=== PATIENT | male | born 1965 | race Caucasian/White ===

== ENCOUNTER 2017-03-16 05:10 | Day surgery (SDC) | payer OTHER ==
[2017-03-15 10:48] LABS: HEMATOCRIT 49.1 % (42.0-54.0); HEMOGLOBIN 16.7 g/dL (13.5-17.5); MCH 30.1 pg (26.0-34.0); MCV 88.6 fL (80.0-100.0); RBC 5.54 10x6/uL (4.20-6.10); RDW 12.9 % (11.5-14.5); WBC 7.4 10x3/uL (4.8-10.8)
[~2017-03-16] VITALS: Ht 180.3 cm; Wt 88.5 kg
[~2017-03-16 05:10] MED LIST: ZESTORETIC 20-1 EACH PO
[2017-03-16 08:24] VITALS: BP 129/84; Ht 180.3 cm; Wt 88.5 kg
--- NOTE | 2017-03-16 19:40 | NUR ---
1556--PT COMPLAINS OF PAIN, NORCO 5/325MG GIVEN X2 TAB. PT VOIDS WITHOUT DIFFICULTY, IV DC'D. FARHANA LAMAR 1613--DISCHARGE INSTRUCTIONS GIVEN, PT VERBALIZES UNDERSTANDING. PT OFF UNIT VIA WC. FARHANA LAMAR
== END 2017-03-16 16:15 | disposition home or self-care (01) ==
LOC: D.OPS 05:10 → D.PAN 08:45 → D.OPS 09:30
PROVIDERS: Anesthesiology
DX: K40.90 Unilateral inguinal hernia, without obstruction or gangrene, not specified as recurrent (principal); D17.1 Benign lipomatous neoplasm of skin and subcutaneous tissue of trunk; I10 Essential (primary) hypertension; Z01.810 Encounter for preprocedural cardiovascular examination; Z01.811 Encounter for preprocedural respiratory examination; Z01.812 Encounter for preprocedural laboratory examination; D17.6 Benign lipomatous neoplasm of spermatic cord

== ENCOUNTER 2018-10-08 01:04 | Emergency (ER) | payer SELFPAY ==
[~2018-10-08] VITALS: Ht 180.3 cm; Wt 90.9 kg
[2018-10-08 01:10] VITALS: Ht 180.3 cm; Wt 90.9 kg
[2018-10-08] MEDS ORDERED: XOFLUZA40 MG PO (01:42)
[2018-10-08 01:53] VITALS: BP 173/92
== END 2018-10-08 01:53 | disposition home or self-care (01) ==
LOC: D.ER 01:04
DX: J09.X2 Influenza due to identified novel influenza A virus with other respiratory manifestations (principal); M79.18 Myalgia, other site